=== PATIENT | female | born 1960 | race Caucasian/White ===

== ENCOUNTER 2016-11-18 08:22 | Outpatient (CLI) | payer BC ==
--- NOTE | 2016-11-18 09:20 | DIAGNOSTIC IMAGING REPORT ---
PROCEDURE: CT ABDOMEN/PELVIS W/O CONTRAST INDICATION: BLADDER PAIN, initial encounter TECHNIQUE: Noncontrast axial images were obtained of the entire abdomen and pelvis with sagittal and coronal reformations. COMPARISON: None. FINDINGS: ABDOMEN: Lung bases are clear. Heart size is normal. Two hepatic cysts, largest 1.3 cm. Cholecystectomy. Pancreas, spleen, adrenal glands and kidneys are normal. Minor atherosclerosis of the aorta . Nonspecific bowel gas pattern. PELVIS: Normal appendix. Mild diverticulosis. Normal bladder without calculi, wall thickening or inflammatory changes. No free fluid the pelvis. No suspicious osseous lesions. IMPRESSION: 1. Hepatic cysts 2. Cholecystectomy 3. Mild sigmoid diverticulosis All CT scans at this facility use dose modulation, iterative reconstruction, and/or weight-based dosing when appropriate to reduce radiation dose to as low as reasonably achievable.
== END 2016-11-18 23:00 ==
LOC: CT SRH 08:22
DX: K76.89 Other specified diseases of liver (principal); K57.30 Diverticulosis of large intestine without perforation or abscess without bleeding; Z90.49 Acquired absence of other specified parts of digestive tract

== ENCOUNTER 2016-12-16 10:21 | Outpatient (CLI) | payer BC ==
--- NOTE | 2016-12-16 11:38 | DIAGNOSTIC IMAGING REPORT ---
PROCEDURE: CT IVP CLINICAL INDICATION: MICOHEMATURIA TECHNIQUE: Initially, noncontrast axial images were obtained of the entire abdomen and pelvis. 125 ml of Isovue 300 was injected intravenously, and axial images were obtained of the kidneys in the nephrographic phase, and subsequently through the entire abdomen and pelvis in the excretory phase. Axial CT images through the pelvis in the delayed phase were obtained. Sagittal and coronal reformations were created. COMPARISON: None. FINDINGS: NONCONTRAST ABDOMEN: No intrarenal calcifications. No unusual calcifications in the liver or spleen. Trace calcific atherosclerosis of the abdominal aorta. 16 mm hypodensity in the left hepatic lobe and 10 mm hypodensity in the caudate lobe. 12 mm hypodensity in the caudal right lateral lower lobe. CONTRAST ABDOMEN: The kidneys uptake and excrete IV contrast uniformly and symmetrically. 5-mm and 4-mm parenchymal cystic structures mid and lower pole right kidney. No solid renal mass. The excretory images demonstrate no filling defects in the intrarenal or ureteral collecting system. The gallbladder surgically absent. The lung bases, liver, adrenal glands, spleen, pancreas, stomach, upper bowel loops, and mesentery appear normal. NONCONTRAST PELVIS: No suspicious distal ureteral calcifications or hydroureter. No bladder calcifications. Mild sigmoid diverticulosis with a few impacted diverticula containing high density material. CONTRAST PELVIS: The urinary bladder demonstrates normal wall thickness without suspicious irregularity. No perivesicular inflammation. No ureteroceles. No bladder mass or unusual enhancement. The reproductive organs are normal for age. Pelvic vessels are normal. No suspicious mass or free pelvic fluid. Intact osseous structures. IMPRESSION: 1. No evidence of suspicious filling defect in the urinary collecting system. 2. Normal CT morphology of the urinary bladder. 3. Mild sigmoid diverticulosis. 4. Hepatic cysts. 5. Tiny right renal cystic structures too small to accurately characterize. All CT scans at this facility use dose modulation, iterative reconstruction, and/or weight-based dosing when appropriate to reduce radiation dose to as low as reasonably achievable.
== END 2016-12-16 23:00 ==
LOC: CT SRH 10:21
DX: R31.29 Other microscopic hematuria (principal); K57.30 Diverticulosis of large intestine without perforation or abscess without bleeding; K76.89 Other specified diseases of liver; N28.1 Cyst of kidney, acquired